=== PATIENT | male | born 1935 | race Caucasian/White ===

== ENCOUNTER 2017-12-12 10:12 | Outpatient (CLI) | payer MEDICARE, BC ==
[~2017-12-12] VITALS: Ht 170.2 cm; Wt 74.8 kg
[2017-12-12 11:57] LABS: BASOPHILS % (AUTO) 0.2 % (0-1); EOSINOPHILS # (AUTO) 0.1 X10'3 (0-0.9); EOSINOPHILS % (AUTO) 0.7 % (0-6); LYMPHOCYTES % (AUTO) 12.3 % (21-51); MEAN CORPUSCULAR HEMOGLOBIN 32.6 PG (27.0-31.0); MEAN CORPUSCULAR HGB CONC 33.4 % (33.0-36.5); MEAN CORPUSCULAR VOLUME 97.5 FL (78-98); MEAN PLATELET VOLUME 8.5 FL (7.4-10.4); MONOCYTES # (AUTO) 0.4 X10'3 (0-0.9); MONOCYTES % (AUTO) 5.6 % (2-12); NEUTROPHILS # (AUTO) 6.4 X10'3 (1.8-7.7); NEUTROPHILS % (AUTO) 81.2 % (42-75); PRE OP HEMATOCRIT 34.1 % (42.0-52.0); PRE OP HEMOGLOBIN 11.4 g/dL (14.0-17.9); PRE OP PLATELET COUNT 191 X10'3 (140-440); RED CELL DISTRIBUTION WIDTH 14.1 % (11.5-14.5)
[2017-12-12 12:07] LABS: PRE OP PROTIME 17.8 SECONDS (9.0-12.0)
[2017-12-12 12:10] LABS: PRE OP INR 1.8 INR
[2017-12-12 12:13] LABS: ALBUMIN 3.9 G/DL (3.4-5.0); ALBUMIN/GLOBULIN RATIO 1.1 (1.1-1.5); ALKALINE PHOSPHATASE 76 IU/L (46-116); BLOOD UREA NITROGEN 32 MG/DL (7-18); BUN/CREATININE RATIO 22.4 (5.4-32.0); CALCIUM 9.1 MG/DL (8.5-10.1); CHLORIDE 101 MMOL/L (99-107); CREATININE 1.43 MG/DL (0.60-1.10); PRE OP ALT 23 U/L (30-65); PRE OP ANION GAP 10 (8-16); PRE OP AST 17 U/L (10-37); PRE OP BILIRUB, TOTAL 0.5 MG/DL (0.0-1.0); PRE OP GLUCOSE 91 MG/DL (70-104); PRE OP POTASSIUM 4.4 MMOL/L (3.4-5.1); PRE OP SODIUM 137 MMOL/L (135-145); TOTAL CARBON DIOXIDE 26.5 MMOL/L (24-32); TOTAL PROTEIN 7.4 G/DL (6.4-8.2); eGFR 47 ML/MIN
[2017-12-12] MEDS ORDERED: CALC0.253 PO (12:58)
[2017-12-12] MEDS ORDERED: HYDR-565 PO (12:58)
[2017-12-12] MEDS ORDERED: DOCUSATE PO (12:58)
[2017-12-12] MEDS ORDERED: CHOL2000 PO (12:58)
[2017-12-12] MEDS ORDERED: DENO60DI SQ (12:58)
[2017-12-12] MEDS ORDERED: POLY17PO10 PO (12:58)
[2017-12-12] MEDS ORDERED: LORA1TAB PO (12:58)
[2017-12-12] MEDS ORDERED: ASPI-1265 PO (12:58)
[2017-12-12] MEDS ORDERED: OMEP40CA37 PO (12:58)
[2017-12-12] MEDS ORDERED: HYDR12.55 PO (12:58)
[2017-12-12] MEDS ORDERED: FISH12002 PO (12:58)
[2017-12-12] MEDS ORDERED: CALC1TAB PO (12:58)
[2017-12-12] MEDS ORDERED: FLO0.4C PO (12:58)
[2017-12-12] MEDS ORDERED: SENNA PO (12:58)
[2017-12-12] MEDS ORDERED: LOSA50TA3 PO (12:58)
[2017-12-12] MEDS ORDERED: SIMV20TA5 PO (12:58)
[2017-12-12] MEDS ORDERED: COU7.5T PO (12:58)
[2017-12-12] MEDS ORDERED: CHLO500T3 PO (12:58)
[2017-12-12] MEDS ORDERED: ALLO100T PO (12:58)
[2017-12-18] MEDS ORDERED: WARF1TAB PO (10:07)
[2017-12-19] MEDS ORDERED: ringers solution, lacted 1,000 ML IV SCH (05:00)
[2017-12-19] MEDS ORDERED: famotidine 20mg tablet PO ONE (05:30)
[2017-12-19] MEDS ORDERED: ceFAZolin 1GM/D5W- ADD-VANTAGE 50 ML IV ONE (05:30)
== END 2017-12-12 23:59 | disposition home or self-care (01) ==
LOC: PRE-OP 10:12 → EDSTATUS 12-19 07:30
PROVIDERS: ATTEND Urology
DX: Z01.812 Encounter for preprocedural laboratory examination (principal); N40.1 Benign prostatic hyperplasia with lower urinary tract symptoms
CPT/HCPCS: 36415; 71046; 80053; 85025; 85610; 85730; 86885; 86900; 86901; 87070

== ENCOUNTER 2018-01-02 05:30 | Inpatient (IN) | payer MEDICARE, BC ==
[~2018-01-02] VITALS: Ht 170.2 cm; Wt 75.2 kg
[2018-01-02] VITALS (24 sets, daily range): BP systolic 114–153; BP diastolic 59–82
[~2018-01-02 05:30] MED LIST: ALLO100T PO; ASPI-1265 PO; CALC0.253 PO; CHLO500T3 PO; CHOL2000 PO; DENO60DI SQ; DOCU-148 PO; ESCI10TA PO; FISH12002 PO; FLO0.4C PO; HYDR-565 PO; LORA1TAB PO; LOSA50TA3 PO; OMEP20TA23 PO; OMEP40CA37 PO; POLY17PO10 PO; SIMV20TA5 PO; TAMS0.4C32 PO; VARD20TA31 PO; WARF1TAB PO; ceFAZolin 1,000 MG/D5W 50ML IVPB Premixed bag IV ONE; famotidine 20mg tablet PO ONE; ringers solution, lacted 1,000 ML IV SCH
[2018-01-02] MEDS ORDERED: CALC-1051 PO (06:14)
[2018-01-02] MEDS ORDERED: LIDOcaine 1% (10mg/ml) 2ml vial ONE (06:29)
[2018-01-02] MEDS ORDERED: ringers solution, lacted 1,000 ML IV SCH (07:06)
[2018-01-02] MEDS ORDERED: hydrALAZINE 20mg/ml inj. IV PRN (07:10)
[2018-01-02] MEDS ORDERED: morphine 4 MG/ML inj SYRINge IV PRN ×2 (07:10)
[2018-01-02] MEDS ORDERED: fentaNYL/PF 50MCG/1 ML 2ML syringe IV PRN (07:10)
[2018-01-02] MEDS ORDERED: labetalol 20mg/4ml (5mg/ml) syringe IV PRN (07:10)
[2018-01-02] MEDS ORDERED: ondansetron/PF 4mg/2ml inj IV PRN ×2 (07:10→10:20)
[2018-01-02] MEDS ORDERED: fentaNYL/PF 50MCG/1 ML 2ML syringe ONE (07:12)
[2018-01-02] MEDS ORDERED: midazolam 2 mg/2 ml injection ONE (07:13)
[2018-01-02 07:20] LABS: BASOPHILS % (AUTO) 0.2 % (0-1); EOSINOPHILS % (AUTO) 0.3 % (0-6); LYMPHOCYTES # (AUTO) 1.1 X10'3 (1.1-4.8); LYMPHOCYTES % (AUTO) 12.5 % (21-51); MEAN CORPUSCULAR HGB CONC 33.9 % (33.0-36.5); MEAN CORPUSCULAR VOLUME 97.4 FL (78-98); MEAN PLATELET VOLUME 9.2 FL (7.4-10.4); MONOCYTES # (AUTO) 0.7 X10'3 (0-0.9); MONOCYTES % (AUTO) 8.3 % (2-12); NEUTROPHILS # (AUTO) 6.6 X10'3 (1.8-7.7); NEUTROPHILS % (AUTO) 78.7 % (42-75); PRE OP HEMOGLOBIN 11.5 g/dL (14.0-17.9); PRE OP PLATELET COUNT 200 X10'3 (140-440); RED BLOOD COUNT 3.49 X10'6 (4.70-6.10); RED CELL DISTRIBUTION WIDTH 13.4 % (11.5-14.5)
[2018-01-02] MEDS ORDERED: ondansetron/PF 4mg/2ml inj ONE (07:25)
[2018-01-02] MEDS ORDERED: neostigmine methylsulfate 1 MG/ML 10ml vial ONE (07:25)
[2018-01-02] MEDS ORDERED: sevoflurane 250ml liquid IH ONE (07:25)
[2018-01-02] MEDS ORDERED: dexamethasone sod phosphate 10mg/ml inj ONE (07:25)
[2018-01-02 07:34] LABS: ALBUMIN 3.7 G/DL (3.4-5.0); ALBUMIN/GLOBULIN RATIO 1.1 (1.1-1.5); ALKALINE PHOSPHATASE 81 IU/L (46-116); BLOOD UREA NITROGEN 36 MG/DL (7-18); BUN/CREATININE RATIO 24.8 (5.4-32.0); CALCIUM 8.4 MG/DL (8.5-10.1); CHLORIDE 103 MMOL/L (99-107); CREATININE 1.45 MG/DL (0.60-1.10); PRE OP ALT 21 U/L (30-65); PRE OP ANION GAP 8 (8-16); PRE OP AST 12 U/L (10-37); PRE OP BILIRUB, TOTAL 0.8 MG/DL (0.0-1.0); PRE OP GLUCOSE 103 MG/DL (70-104); PRE OP POTASSIUM 4.1 MMOL/L (3.4-5.1); PRE OP SODIUM 136 MMOL/L (135-145); TOTAL CARBON DIOXIDE 25.3 MMOL/L (24-32); eGFR 46 ML/MIN
[2018-01-02] MEDS ORDERED: albumin (Human) 5% 250ml 250 ML IV ONE ×2 (07:49→08:35)
[2018-01-02 08:14] LABS: PRE OP PROTIME 10.7 SECONDS (9.0-12.0)
[2018-01-02] MEDS ORDERED: rocuronium 10mg/ml inj IV ONE (08:18)
[2018-01-02] MEDS ORDERED: propofol inj 20 ML IV ONE (08:19)
[2018-01-02] MEDS ORDERED: LIDOcaine 1%/PF 5ML 10 MG/ML VIAL ONE (08:19)
[2018-01-02] MEDS ORDERED: albumin (Human) 5% 250ml 500 ML IV ONE (08:40)
[2018-01-02 09:21] LABS: ISTAT CREATININE 1.1 mg/dL (0.8-1.3); ISTAT HGB 6.8 g/dl (14.0-18.0); ISTAT IONIZED CALCIUM 1.15 mmol/L (1.03-1.32); ISTAT K 3.7 mmol/L (3.5-5.1); POC BUN/CREATININE RATIO 25.5 (5.4-32.0)
[2018-01-02 09:35] LABS: BASOPHILS % (AUTO) 0.4 % (0-1); EOSINOPHILS % (AUTO) 0.6 % (0-6); LYMPHOCYTES # (AUTO) 0.8 X10'3 (1.1-4.8); LYMPHOCYTES % (AUTO) 14.9 % (21-51); MEAN CORPUSCULAR HEMOGLOBIN 33.6 PG (27.0-31.0); MEAN CORPUSCULAR HGB CONC 34.8 % (33.0-36.5); MEAN CORPUSCULAR VOLUME 96.5 FL (78-98); MEAN PLATELET VOLUME 8.8 FL (7.4-10.4); MONOCYTES # (AUTO) 0.4 X10'3 (0-0.9); NEUTROPHILS # (AUTO) 4.2 X10'3 (1.8-7.7); NEUTROPHILS % (AUTO) 77.1 % (42-75); PLATELET COUNT 136 X10'3 (140-440); RED BLOOD COUNT 2.39 X10'6 (4.70-6.10); RED CELL DISTRIBUTION WIDTH 13.1 % (11.5-14.5); WHITE BLOOD COUNT 5.4 X10'3 (4.5-11.0)
[2018-01-02] MEDS ORDERED: glycopyrrolate 0.2mg/ml inj ONE (09:40)
[2018-01-02] MEDS ORDERED: morphine 10mg/ml inj. ONE (09:43)
[2018-01-02] MEDS ORDERED: naloxone 0.4 mg/ml inj IV PRN (10:20)
[2018-01-02] MEDS ORDERED: CADD PCA waste documentation MC PRN (10:20)
[2018-01-02] MEDS: fentaNYL/PF 50MCG/1 ML 2ML syringe IV PRN ×2 (10:30→10:36)
[2018-01-02] MEDS: HYDROmorphone/NS 1 mg/ml CADD 50 ML IV SCH ×7 (10:39→23:00)
[2018-01-02] MEDS ORDERED: cyclobenzaprine 10mg tablet PO PRN (10:45)
[2018-01-02] MEDS: LORazepam 1 MG tablet PO PRN ×2 (12:57→21:20)
[2018-01-02] MEDS: potassium cl 20mEq in 1/2 NS 1,000 ML IV SCH ×3 (13:59→21:22)
[2018-01-02] MEDS: ceFAZolin/D5W- 1GM premix 50 ML IV SCH ×2 (16:35→23:23)
[2018-01-02 18:22] LABS: BASOPHILS % (AUTO) 0.1 % (0-1); EOSINOPHILS % (AUTO) 0 % (0-6); HEMATOCRIT 33.5 % (42.0-52.0); HEMOGLOBIN 11.4 g/dl (14.0-17.9); LYMPHOCYTES # (AUTO) 0.4 X10'3 (1.1-4.8); LYMPHOCYTES % (AUTO) 3.8 % (21-51); MEAN CORPUSCULAR HEMOGLOBIN 32.8 PG (27.0-31.0); MEAN CORPUSCULAR HGB CONC 33.9 % (33.0-36.5); MEAN CORPUSCULAR VOLUME 96.7 FL (78-98); MEAN PLATELET VOLUME 8.7 FL (7.4-10.4); MONOCYTES # (AUTO) 0.2 X10'3 (0-0.9); MONOCYTES % (AUTO) 1.4 % (2-12); NEUTROPHILS # (AUTO) 10.6 X10'3 (1.8-7.7); NEUTROPHILS % (AUTO) 94.7 % (42-75); PLATELET COUNT 165 X10'3 (140-440); RED BLOOD COUNT 3.47 X10'6 (4.70-6.10); RED CELL DISTRIBUTION WIDTH 13.7 % (11.5-14.5); WHITE BLOOD COUNT 11.2 X10'3 (4.5-11.0)
[2018-01-02] MEDS: allopurinol 100mg tablet PO SCH (19:47)
[2018-01-02] MEDS: losartan 50mg tablet PO SCH (21:19)
[2018-01-03] VITALS: BP 133/70
[2018-01-03] MEDS: HYDROmorphone/NS 1 mg/ml CADD 50 ML IV SCH ×12 (01:00→23:00)
[2018-01-03] MEDS: potassium cl 20mEq in 1/2 NS 1,000 ML IV SCH ×3 (04:10→23:14)
[2018-01-03 05:06] LABS: BASOPHILS % (AUTO) 0 % (0-1); EOSINOPHILS % (AUTO) 0.1 % (0-6); HEMATOCRIT 30.1 % (42.0-52.0); HEMOGLOBIN 10.3 g/dl (14.0-17.9); LYMPHOCYTES # (AUTO) 0.7 X10'3 (1.1-4.8); LYMPHOCYTES % (AUTO) 6.2 % (21-51); MEAN CORPUSCULAR HEMOGLOBIN 32.9 PG (27.0-31.0); MEAN CORPUSCULAR HGB CONC 34.2 % (33.0-36.5); MEAN CORPUSCULAR VOLUME 96.3 FL (78-98); MEAN PLATELET VOLUME 9.1 FL (7.4-10.4); MONOCYTES # (AUTO) 0.8 X10'3 (0-0.9); MONOCYTES % (AUTO) 6.6 % (2-12); NEUTROPHILS # (AUTO) 10.1 X10'3 (1.8-7.7); NEUTROPHILS % (AUTO) 87.1 % (42-75); PLATELET COUNT 148 X10'3 (140-440); RED BLOOD COUNT 3.12 X10'6 (4.70-6.10); RED CELL DISTRIBUTION WIDTH 13.4 % (11.5-14.5); WHITE BLOOD COUNT 11.6 X10'3 (4.5-11.0)
[2018-01-03 05:30] LABS: ANION GAP 8 (8-16); BLOOD UREA NITROGEN 27 MG/DL (7-18); BUN/CREATININE RATIO 20.6 (5.4-32.0); CALCIUM 7.4 MG/DL (8.5-10.1); CHLORIDE 105 MMOL/L (99-107); CREATININE 1.31 MG/DL (0.60-1.10); GLUCOSE 119 MG/DL (70-104); POTASSIUM 4.7 MMOL/L (3.5-5.1); SODIUM 135 MMOL/L (135-145); TOTAL CARBON DIOXIDE 22.1 MMOL/L (24-32); eGFR 52 ML/MIN
[2018-01-03 07:01] VITALS: BP 153/74
[2018-01-03] MEDS: polyethylene glycol 3350 17gm powd pack PO SCH (07:32)
[2018-01-03] MEDS: allopurinol 100mg tablet PO SCH ×2 (07:34→20:16)
[2018-01-03] MEDS: ceFAZolin/D5W- 1GM premix 50 ML IV SCH (07:34)
[2018-01-03] MEDS: pantoprazole 40mg Tablet.DR PO SCH (07:34)
[2018-01-03 12:02] VITALS: BP 150/69
[2018-01-03] MEDS: oxybutynin 5mg tablet PO PRN ×2 (16:48→23:20)
[2018-01-03 19:00] VITALS: BP 167/80
[2018-01-03] MEDS: losartan 50mg tablet PO SCH (20:16)
[2018-01-03] MEDS: LORazepam 1 MG tablet PO PRN (20:39)
[2018-01-04] VITALS: BP 132/61
[2018-01-04] MEDS: HYDROmorphone/NS 1 mg/ml CADD 50 ML IV SCH ×12 (01:00→23:00)
[2018-01-04 05:09] LABS: ALBUMIN 2.9 G/DL (3.4-5.0); ANION GAP 6 (8-16); BASOPHILS % (AUTO) 0.1 % (0-1); BLOOD UREA NITROGEN 23 MG/DL (7-18); BUN/CREATININE RATIO 18.1 (5.4-32.0); CALCIUM 7.5 MG/DL (8.5-10.1); CHLORIDE 107 MMOL/L (99-107); CREATININE 1.27 MG/DL (0.60-1.10); EOSINOPHILS # (AUTO) 0.1 X10'3 (0-0.9); EOSINOPHILS % (AUTO) 0.7 % (0-6); GLUCOSE 87 MG/DL (70-104); HEMATOCRIT 28.7 % (42.0-52.0); HEMOGLOBIN 9.9 g/dl (14.0-17.9); LYMPHOCYTES # (AUTO) 1.6 X10'3 (1.1-4.8); LYMPHOCYTES % (AUTO) 13.1 % (21-51); MEAN CORPUSCULAR HEMOGLOBIN 32.9 PG (27.0-31.0); MEAN CORPUSCULAR HGB CONC 34.4 % (33.0-36.5); MEAN CORPUSCULAR VOLUME 95.4 FL (78-98); MEAN PLATELET VOLUME 8.8 FL (7.4-10.4); MONOCYTES # (AUTO) 0.9 X10'3 (0-0.9); MONOCYTES % (AUTO) 7.4 % (2-12); NEUTROPHILS # (AUTO) 9.3 X10'3 (1.8-7.7); NEUTROPHILS % (AUTO) 78.7 % (42-75); PLATELET COUNT 152 X10'3 (140-440); POTASSIUM 4.8 MMOL/L (3.5-5.1); RED BLOOD COUNT 3.01 X10'6 (4.70-6.10); RED CELL DISTRIBUTION WIDTH 13.9 % (11.5-14.5); SODIUM 137 MMOL/L (135-145); TOTAL CARBON DIOXIDE 24.1 MMOL/L (24-32); WHITE BLOOD COUNT 11.9 X10'3 (4.5-11.0); eGFR 54 ML/MIN
[2018-01-04] MEDS: polyethylene glycol 3350 17gm powd pack PO SCH (07:32)
[2018-01-04] MEDS: allopurinol 100mg tablet PO SCH ×2 (07:32→20:51)
[2018-01-04] MEDS: pantoprazole 40mg Tablet.DR PO SCH (07:32)
[2018-01-04] MEDS: docusate sod 250mg capsule PO SCH (07:32)
[2018-01-04] MEDS: oxybutynin 5mg tablet PO PRN (08:21)
[2018-01-04 08:34] VITALS: BP 156/78
[2018-01-04 11:37] VITALS: BP 138/75
[2018-01-04] MEDS: potassium cl 20mEq in 1/2 NS 1,000 ML IV SCH (13:54)
[2018-01-04] MEDS: opium/belladonna alkaloids No. 15A 30mg rectal suppository RC PRN (14:30)
[2018-01-04 18:30] VITALS: BP 158/76
[2018-01-04] MEDS: LORazepam 1 MG tablet PO PRN (20:53)
[2018-01-04] MEDS: losartan 50mg tablet PO SCH (20:57)
[2018-01-04 23:00] VITALS: BP 145/70
[2018-01-05] MEDS: HYDROmorphone/NS 1 mg/ml CADD 50 ML IV SCH ×4 (01:00→07:00)
[2018-01-05] MEDS: potassium cl 20mEq in 1/2 NS 1,000 ML IV SCH (04:44)
[2018-01-05 05:44] LABS: BASOPHILS % (AUTO) 0.3 % (0-1); EOSINOPHILS # (AUTO) 0.1 X10'3 (0-0.9); EOSINOPHILS % (AUTO) 1.3 % (0-6); HEMATOCRIT 30.6 % (42.0-52.0); HEMOGLOBIN 10.6 g/dl (14.0-17.9); LYMPHOCYTES # (AUTO) 1.5 X10'3 (1.1-4.8); LYMPHOCYTES % (AUTO) 16.5 % (21-51); MEAN CORPUSCULAR HEMOGLOBIN 33.2 PG (27.0-31.0); MEAN CORPUSCULAR HGB CONC 34.6 % (33.0-36.5); MEAN PLATELET VOLUME 8.9 FL (7.4-10.4); MONOCYTES # (AUTO) 0.9 X10'3 (0-0.9); NEUTROPHILS # (AUTO) 6.8 X10'3 (1.8-7.7); NEUTROPHILS % (AUTO) 71.9 % (42-75); PLATELET COUNT 155 X10'3 (140-440); RED BLOOD COUNT 3.19 X10'6 (4.70-6.10); RED CELL DISTRIBUTION WIDTH 13.7 % (11.5-14.5); WHITE BLOOD COUNT 9.3 X10'3 (4.5-11.0)
[2018-01-05 06:07] LABS: ALBUMIN 3.1 G/DL (3.4-5.0); ANION GAP 8 (8-16); BLOOD UREA NITROGEN 18 MG/DL (7-18); BUN/CREATININE RATIO 14.8 (5.4-32.0); CALCIUM 7.5 MG/DL (8.5-10.1); CHLORIDE 107 MMOL/L (99-107); CREATININE 1.22 MG/DL (0.60-1.10); GLUCOSE 89 MG/DL (70-104); POTASSIUM 4.2 MMOL/L (3.5-5.1); SODIUM 139 MMOL/L (135-145); TOTAL CARBON DIOXIDE 23.6 MMOL/L (24-32); eGFR 57 ML/MIN
[2018-01-05 06:58] VITALS: BP 129/79
[2018-01-05] MEDS: docusate sod 250mg capsule PO SCH (07:57)
[2018-01-05] MEDS: polyethylene glycol 3350 17gm powd pack PO SCH (07:57)
[2018-01-05] MEDS: pantoprazole 40mg Tablet.DR PO SCH (07:57)
[2018-01-05] MEDS: allopurinol 100mg tablet PO SCH ×2 (07:58→09:00)
[2018-01-05] MEDS ORDERED: HYDROcodone/acetaminophen 5mg/325mg tablet PO PRN (09:20)
[2018-01-05 12:21] VITALS: BP 117/69
[2018-01-05] MEDS: HYDROcodone/acetaminophen 5mg/325mg tablet PO PRN (15:23)
[2018-01-05] MEDS: opium/belladonna alkaloids No. 15A 30mg rectal suppository RC PRN (15:26)
[2018-01-05 20:00] VITALS: BP 132/71
[2018-01-05] MEDS: oxybutynin 5mg tablet PO PRN (21:24)
[2018-01-05] MEDS: losartan 50mg tablet PO SCH (21:24)
[2018-01-06] VITALS: BP 139/67
[2018-01-06] MEDS: opium/belladonna alkaloids No. 15A 30mg rectal suppository RC PRN ×2 (02:18→14:55)
[2018-01-06] MEDS: HYDROcodone/acetaminophen 5mg/325mg tablet PO PRN ×3 (02:21→20:52)
[2018-01-06] MEDS: LORazepam 1 MG tablet PO PRN (02:50)
[2018-01-06 04:59] LABS: BASOPHILS % (AUTO) 0.3 % (0-1); EOSINOPHILS # (AUTO) 0.2 X10'3 (0-0.9); EOSINOPHILS % (AUTO) 2.2 % (0-6); HEMATOCRIT 27.1 % (42.0-52.0); HEMOGLOBIN 9.4 g/dl (14.0-17.9); LYMPHOCYTES # (AUTO) 1.1 X10'3 (1.1-4.8); LYMPHOCYTES % (AUTO) 11.9 % (21-51); MEAN CORPUSCULAR HEMOGLOBIN 33.1 PG (27.0-31.0); MEAN CORPUSCULAR HGB CONC 34.6 % (33.0-36.5); MEAN CORPUSCULAR VOLUME 95.5 FL (78-98); MEAN PLATELET VOLUME 8.8 FL (7.4-10.4); MONOCYTES # (AUTO) 0.9 X10'3 (0-0.9); MONOCYTES % (AUTO) 9.8 % (2-12); NEUTROPHILS # (AUTO) 7.2 X10'3 (1.8-7.7); NEUTROPHILS % (AUTO) 75.8 % (42-75); PLATELET COUNT 158 X10'3 (140-440); RED BLOOD COUNT 2.84 X10'6 (4.70-6.10); RED CELL DISTRIBUTION WIDTH 14.5 % (11.5-14.5); WHITE BLOOD COUNT 9.6 X10'3 (4.5-11.0)
[2018-01-06 05:14] LABS: ALBUMIN 2.9 G/DL (3.4-5.0); ANION GAP 8 (8-16); BLOOD UREA NITROGEN 23 MG/DL (7-18); BUN/CREATININE RATIO 16.4 (5.4-32.0); CALCIUM 7.4 MG/DL (8.5-10.1); CHLORIDE 106 MMOL/L (99-107); GLUCOSE 103 MG/DL (70-104); SODIUM 135 MMOL/L (135-145); TOTAL CARBON DIOXIDE 21.3 MMOL/L (24-32); eGFR 48 ML/MIN
[2018-01-06 07:00] VITALS: BP_SYST 144; BP_DIAS 75; BP_DIAS 78
[2018-01-06] MEDS: allopurinol 100mg tablet PO SCH ×2 (07:50→20:47)
[2018-01-06] MEDS: docusate sod 250mg capsule PO SCH (07:50)
[2018-01-06] MEDS: pantoprazole 40mg Tablet.DR PO SCH (07:51)
[2018-01-06] MEDS: polyethylene glycol 3350 17gm powd pack PO SCH (07:52)
[2018-01-06 11:21] VITALS: BP 107/62
[2018-01-06] MEDS: oxybutynin 5mg tablet PO PRN ×2 (14:39→20:48)
[2018-01-06 20:00] VITALS: BP 128/67
[2018-01-06] MEDS: losartan 50mg tablet PO SCH (20:47)
[2018-01-07] VITALS: BP 145/70
[2018-01-07 05:18] LABS: BASOPHILS % (AUTO) 0.4 % (0-1); EOSINOPHILS # (AUTO) 0.3 X10'3 (0-0.9); EOSINOPHILS % (AUTO) 3.1 % (0-6); HEMATOCRIT 27.6 % (42.0-52.0); HEMOGLOBIN 9.2 g/dl (14.0-17.9); LYMPHOCYTES # (AUTO) 1.8 X10'3 (1.1-4.8); MEAN CORPUSCULAR HEMOGLOBIN 32.2 PG (27.0-31.0); MEAN CORPUSCULAR HGB CONC 33.3 % (33.0-36.5); MEAN PLATELET VOLUME 8.3 FL (7.4-10.4); MONOCYTES # (AUTO) 0.7 X10'3 (0-0.9); MONOCYTES % (AUTO) 8.3 % (2-12); NEUTROPHILS # (AUTO) 5.5 X10'3 (1.8-7.7); NEUTROPHILS % (AUTO) 66.2 % (42-75); PLATELET COUNT 176 X10'3 (140-440); RED BLOOD COUNT 2.85 X10'6 (4.70-6.10); RED CELL DISTRIBUTION WIDTH 14.5 % (11.5-14.5); WHITE BLOOD COUNT 8.3 X10'3 (4.5-11.0)
[2018-01-07 05:23] LABS: ANION GAP 9 (8-16); BLOOD UREA NITROGEN 30 MG/DL (7-18); BUN/CREATININE RATIO 19.2 (5.4-32.0); CALCIUM 7.4 MG/DL (8.5-10.1); CHLORIDE 104 MMOL/L (99-107); CREATININE 1.56 MG/DL (0.60-1.10); GLUCOSE 85 MG/DL (70-104); POTASSIUM 4.4 MMOL/L (3.5-5.1); SODIUM 136 MMOL/L (135-145); TOTAL CARBON DIOXIDE 23.2 MMOL/L (24-32); eGFR 43 ML/MIN
[2018-01-07 07:00] VITALS: BP 140/69
[2018-01-07] MEDS: docusate sod 250mg capsule PO SCH (07:53)
[2018-01-07] MEDS: allopurinol 100mg tablet PO SCH (07:53)
[2018-01-07] MEDS: pantoprazole 40mg Tablet.DR PO SCH (07:53)
[2018-01-07] MEDS: polyethylene glycol 3350 17gm powd pack PO SCH (07:53)
[2018-01-07] MEDS: HYDROcodone/acetaminophen 5mg/325mg tablet PO PRN (07:57)
[2018-01-07] MEDS ORDERED: OXYB5TAB11 PO (08:34)
== END 2018-01-07 11:00 | disposition home or self-care (01) | DRG 715 ==
LOC: PAS IN 05:30 → EDSTATUS 07:30 → SUR 3N 11:41
PROVIDERS: ADMIT Urology; ATTEND Urology
PROC: 30233N1 Transfusion of Nonautologous Red Blood Cells into Peripheral Vein, Percutaneous Approach (ICD-10-PCS; 2018-01-02)
PROC: 0T9B80Z Drainage of Bladder with Drainage Device, Via Natural or Artificial Opening Endoscopic (ICD-10-PCS; 2018-01-02)
PROC: 0VB00ZZ Excision of Prostate, Open Approach (ICD-10-PCS; principal; 2018-01-02 07:30)
DX: C61 Malignant neoplasm of prostate (principal); D62 Acute posthemorrhagic anemia; N32.0 Bladder-neck obstruction; N39.41 Urge incontinence; R31.9 Hematuria, unspecified; I10 Essential (primary) hypertension; I48.91 Unspecified atrial fibrillation; F41.9 Anxiety disorder, unspecified; M10.9 Gout, unspecified; K21.9 Gastro-esophageal reflux disease without esophagitis; K59.00 Constipation, unspecified; I25.10 Atherosclerotic heart disease of native coronary artery without angina pectoris; Z90.5 Acquired absence of kidney; Z72.89 Other problems related to lifestyle; Z79.01 Long term (current) use of anticoagulants; Z79.899 Other long term (current) drug therapy; Z79.82 Long term (current) use of aspirin; Z87.01 Personal history of pneumonia (recurrent); Z87.891 Personal history of nicotine dependence; Z80.3 Family history of malignant neoplasm of breast; Z85.828 Personal history of other malignant neoplasm of skin; Z85.528 Personal history of other malignant neoplasm of kidney
CPT/HCPCS: 36415; 80047; 80048; 80053; 85025; 85610; 85730; 86885; 86900; 86901; 86920; 87070; 88307; 88344; 93005; A4344; A4346; A4357; A6402; A6449; A7000; C1758; C1769; J0690; J1100; J1170; J2001; J2250; J2270; J2405; J2704; J2710; J3010; J3490; J7030; J7120; P9016; P9045

== ENCOUNTER 2020-09-24 08:47 | Emergency (ER) | payer MEDICARE, BC ==
[~2020-09-24] VITALS: Ht 167.6 cm; Wt 75.0 kg
[~2020-09-24 08:47] MED LIST changes: -ASPI-1265 PO; +CALC-1051 PO; -ESCI10TA PO; -FLO0.4C PO; +HYDR-4353 PO; -HYDR-565 PO; -OMEP40CA37 PO; +OXYB5TAB16 PO; +SIMV-42 PO; -SIMV20TA5 PO; -WARF1TAB PO; -ceFAZolin 1,000 MG/D5W 50ML IVPB Premixed bag IV ONE; -famotidine 20mg tablet PO ONE; -ringers solution, lacted 1,000 ML IV SCH
[2020-09-24] MEDS ORDERED: bacitracin 15gm ointment TP ONE (09:35)
[2020-09-24] MEDS ORDERED: CefTRIAXone 2gm/D5W 50ml BAG 50 ML IV ONE (09:35)
[2020-09-24] MEDS ORDERED: vancomycin/NS 1 GM ADD-VANTAGE 250 ML IV ONE (09:35)
--- NOTE | 2020-09-24 09:46 | NUR ---
NOTIFIED DR. Garcia THAT WOUND WAS VERY DRY TO CULTURE EVEN AFTER SQUEEZING IT.
[2020-09-24 10:10] LABS: BASOPHILS % (AUTO) 0.3 % (0-1); EOSINOPHILS % (AUTO) 0.3 % (0-6); HEMATOCRIT 29.7 % (42.0-52.0); HEMOGLOBIN 10.1 g/dl (14.0-17.9); LYMPHOCYTES # (AUTO) 0.9 X10'3 (1.1-4.8); LYMPHOCYTES % (AUTO) 14.3 % (21-51); MEAN CORPUSCULAR HEMOGLOBIN 33.9 PG (27.0-31.0); MEAN CORPUSCULAR HGB CONC 33.9 g/dL (33.0-36.5); MEAN CORPUSCULAR VOLUME 100.2 FL (78-98); MEAN PLATELET VOLUME 8.3 FL (7.4-10.4); MONOCYTES # (AUTO) 0.6 X10'3 (0-0.9); MONOCYTES % (AUTO) 8.9 % (2-12); NEUTROPHILS % (AUTO) 76.2 % (42-75); PLATELET COUNT 206 X10'3 (140-440); RED BLOOD COUNT 2.97 X10'6 (4.70-6.10); RED CELL DISTRIBUTION WIDTH 14.5 % (11.5-14.5); WHITE BLOOD COUNT 6.6 X10'3 (4.5-11.0)
--- NOTE | 2020-09-24 10:16 | NUR ---
PT TOOK NORCO AT HOME AT 7:30AM.
[2020-09-24 10:21] LABS: ALANINE AMINOTRANSFERASE 16 U/L (12-78); ALBUMIN 3.3 G/DL (3.4-5.0); ALBUMIN/GLOBULIN RATIO 0.9 (1.1-1.5); ALKALINE PHOSPHATASE 96 IU/L (46-116); ANION GAP 12 (8-16); ASPARTATE AMINO TRANSFERASE 20 U/L (10-37); BILIRUBIN,TOTAL 0.3 MG/DL (0.1-1.0); BLOOD UREA NITROGEN 37 MG/DL (7-18); BUN/CREATININE RATIO 21.8 (5.4-32.0); CALCIUM 8.4 MG/DL (8.5-10.1); CHLORIDE 105 MMOL/L (99-107); GLUCOSE 139 MG/DL (70-104); MAGNESIUM 1.7 MG/DL (1.5-2.4); POTASSIUM 3.6 MMOL/L (3.5-5.1); SODIUM 141 MMOL/L (135-145); TOTAL CARBON DIOXIDE 24.4 MMOL/L (24-32); TOTAL PROTEIN 7.1 G/DL (6.4-8.2); eGFR 38 ML/MIN
[2020-09-24 12:31] VITALS: BP 156/92
== END 2020-09-24 12:33 | disposition home or self-care (01) ==
LOC: ER 08:48
DX: T81.49XA Infection following a procedure, other surgical site, initial encounter (principal); L08.9 Local infection of the skin and subcutaneous tissue, unspecified; L03.116 Cellulitis of left lower limb; Z98.890 Other specified postprocedural states; Z79.899 Other long term (current) drug therapy
CPT/HCPCS: 36415; 73660; 80053; 83605; 83735; 84145; 85025; 87040; 87070; 96365; 96366; 96367; 99285; J0696; J3370

== ENCOUNTER 2020-11-17 08:18 | Day surgery (SDC) | payer MEDICARE, BC ==
[2020-11-10 10:51] LABS: BASOPHILS % (AUTO) 0.7 % (0-1); EOSINOPHILS # (AUTO) 0.1 X10'3 (0-0.9); EOSINOPHILS % (AUTO) 1.9 % (0-6); LYMPHOCYTES # (AUTO) 1.3 X10'3 (1.1-4.8); LYMPHOCYTES % (AUTO) 19.9 % (21-51); MEAN CORPUSCULAR HEMOGLOBIN 33.2 PG (27.0-31.0); MEAN CORPUSCULAR HGB CONC 33.8 g/dL (33.0-36.5); MEAN CORPUSCULAR VOLUME 98.3 FL (78-98); MEAN PLATELET VOLUME 8.4 FL (7.4-10.4); MONOCYTES # (AUTO) 0.7 X10'3 (0-0.9); MONOCYTES % (AUTO) 9.8 % (2-12); NEUTROPHILS # (AUTO) 4.6 X10'3 (1.8-7.7); NEUTROPHILS % (AUTO) 67.7 % (42-75); PRE OP HEMATOCRIT 31.6 % (42.0-52.0); PRE OP PLATELET COUNT 193 X10'3 (140-440); RED BLOOD COUNT 3.22 X10'6 (4.70-6.10); RED CELL DISTRIBUTION WIDTH 13.9 % (11.5-14.5)
[2020-11-10 10:54] LABS: PRE OP HEMOGLOBIN 10.7 g/dL (14.0-17.9)
[2020-11-10 11:07] LABS: ALBUMIN 3.7 G/DL (3.4-5.0); ALBUMIN/GLOBULIN RATIO 1.1 (1.1-1.5); ALKALINE PHOSPHATASE 83 IU/L (46-116); BLOOD UREA NITROGEN 39 MG/DL (7-18); BUN/CREATININE RATIO 23.4 (5.4-32.0); CALCIUM 9.3 MG/DL (8.5-10.1); CHLORIDE 106 MMOL/L (99-107); CREATININE 1.67 MG/DL (0.60-1.10); PRE OP ALT 21 U/L (30-65); PRE OP ANION GAP 8 (8-16); PRE OP AST 28 U/L (10-37); PRE OP BILIRUB, TOTAL 0.5 MG/DL (0.0-1.0); PRE OP GLUCOSE 87 MG/DL (70-104); PRE OP POTASSIUM 4.6 MMOL/L (3.4-5.1); PRE OP SODIUM 141 MMOL/L (135-145); TOTAL CARBON DIOXIDE 27.4 MMOL/L (24-32); TOTAL PROTEIN 7.1 G/DL (6.4-8.2); eGFR 39 ML/MIN
[2020-11-10 11:16] LABS: C-REACTIVE PROTEIN 0.07 MG/DL (0.0-0.5)
[~2020-11-17] VITALS: Ht 167.6 cm; Wt 74.8 kg
[~2020-11-17 08:18] MED LIST changes: +BIOT5TAB PO; -CALC-1051 PO; +CALC1TAB99 PEG; +CARV3.122 PO; +DOCUMENT DATE & TIME OF BETA-BLOCKER PO ONE; -FISH12002 PO; +FURO-150 PO; +GABA-530 PO; +MELA5TAB12 PO; +OMEG-79 PO; -OXYB5TAB16 PO; -TAMS0.4C32 PO; +VITA-3 PO; +WARF6TAB49 PO; +cefazolin/dext.iso 2gm/100ml IV ONE; +famotidine 20mg tablet PO ONE; +ringers solution, lacted 1,000 ML IV SCH
[2020-11-17 08:30] VITALS: BP 139/69
[2020-11-17 09:35] LABS: PRE OP INR 1.1 INR; PRE OP PROTIME 11.2 SECONDS (9.0-12.0)
[2020-11-17] MEDS ORDERED: BUPIVAcaine/PF 2.5 mg/ml (0.25%) 30ml vial ONE (10:55)
[2020-11-17] MEDS ORDERED: bacitracin 15gm ointment TP ONE (10:55)
[2020-11-17] MEDS ORDERED: sevoflurane 250ml liquid IH ONE (11:02)
[2020-11-17] MEDS ORDERED: fentaNYL/PF 50MCG/1 ML 2ML syringe ONE (11:06)
[2020-11-17] MEDS ORDERED: midazolam 1 mg/ML 2ml injection ONE (11:07)
[2020-11-17] MEDS ORDERED: propofol inj 20 ML IV ONE (11:20)
[2020-11-17] MEDS ORDERED: dexamethasone sod phosphate 4mg/ml inj. ONE (11:20)
[2020-11-17] MEDS ORDERED: LIDOcaine 2% (20mg/ml) 5ml vial ONE (11:20)
[2020-11-17] MEDS ORDERED: ondansetron/PF 4mg/2ml inj ONE (11:20)
[2020-11-17] MEDS ORDERED: ePHEDrine 50MG/ML INJ. ONE (11:32)
[2020-11-17 11:49] VITALS: BP 146/66
--- NOTE | 2020-11-17 11:49 | NUR ---
Received from OR via [facility] , accompanied by Anesthesiologist CASSIDY and report given by Anesthesiolgist. PATIENT WITH 20G PIOV IN LEFT UE RUNNING 100 OF LR. VSS. ENIES PAIN COBAN DRESSING IS CDI TO LEFT FOOT. NO DRAINAGE PRESENT. + CAP REFILL IN REMAINING TOES. Addendum: 11/17/20 at 1203 by Bharath Hamilton RN, RN Amended: Links added.
[2020-11-17 12:00] VITALS: BP 136/64
[2020-11-17] MEDS ORDERED: proCHLORperazine 10 MG/2 ml inj IV PRN (12:05)
[2020-11-17] MEDS ORDERED: morphine 2 MG/ML inj. syringe IV PRN (12:05)
[2020-11-17] MEDS ORDERED: hydrALAZINE 20mg/ml inj. IV PRN (12:05)
[2020-11-17] MEDS ORDERED: meperidine/PF 25mg/ml syringe IV PRN ×3 (12:05)
[2020-11-17] MEDS ORDERED: labetalol 20mg/4ml (5mg/ml) syringe IV PRN (12:05)
[2020-11-17] MEDS ORDERED: ondansetron/PF 4mg/2ml inj IV PRN (12:05)
[2020-11-17] MEDS ORDERED: morphine 4 MG/ML inj SYRINge IV PRN (12:05)
[2020-11-17] MEDS ORDERED: ringers solution, lacted 1,000 ML IV SCH (12:05)
[2020-11-17] MEDS ORDERED: acetaminophen 1,000mg/100ml IV 100 ML IV PRN (12:05)
[2020-11-17 12:10] VITALS: BP 134/60
[2020-11-17 12:20] VITALS: BP 159/75
[2020-11-17 12:30] VITALS: BP 162/70
--- NOTE | 2020-11-17 12:59 | NUR ---
ALL DC CRITERIA FOR HOME HAS BEEN MET. COMING TO TAKE PATIENT HOME. IV OUT WITHOUT COMPLICATIONS. ALL QUESTIONS ANSWERED FOR DC PAPERWORK AND PATIENT SHOWED GOOD UNDERSTANDING OF CONTENT. OUT VIA WHEELCHAIR TO PERSONAL VEHICLE WHERE FAMILY DROVE PATIENT HOME. Addendum: 11/17/20 at 1317 by Bharath Hamilton RN, RN Amended: Links added.
== END 2020-11-17 12:59 | disposition home or self-care (01) ==
LOC: PAS 08:18
PROVIDERS: ATTEND Podiatrist Foot & Ankle Surgery
DX: M86.8X7 Other osteomyelitis, ankle and foot (principal); M24.575 Contracture, left foot; L97.529 Non-pressure chronic ulcer of other part of left foot with unspecified severity; I25.10 Atherosclerotic heart disease of native coronary artery without angina pectoris; I48.91 Unspecified atrial fibrillation; D64.9 Anemia, unspecified; I12.9 Hypertensive chronic kidney disease with stage 1 through stage 4 chronic kidney disease, or unspecified chronic kidney disease; N18.9 Chronic kidney disease, unspecified; K21.9 Gastro-esophageal reflux disease without esophagitis; F41.9 Anxiety disorder, unspecified; M19.90 Unspecified osteoarthritis, unspecified site; Z87.891 Personal history of nicotine dependence; Z95.1 Presence of aortocoronary bypass graft; Z79.01 Long term (current) use of anticoagulants; Z90.5 Acquired absence of kidney; Z90.89 Acquired absence of other organs; Z98.890 Other specified postprocedural states; Z90.79 Acquired absence of other genital organ(s); Z85.528 Personal history of other malignant neoplasm of kidney
CPT/HCPCS: 28270; 28825; 36415; 80053; 82948; 85025; 85610; 85651; 85730; 86140; A6222; J1100; J2001; J2250; J2405; J2704; J3010; J3490; A4215; A4618; A6449; A7000; J7120

== ENCOUNTER 2021-01-12 08:38 | Day surgery (SDC) | payer MEDICARE, BC ==
[2021-01-04 11:23] LABS: BASOPHILS % (AUTO) 0.4 % (0-1); EOSINOPHILS # (AUTO) 0.1 X10'3 (0-0.9); EOSINOPHILS % (AUTO) 0.8 % (0-6); LYMPHOCYTES % (AUTO) 15.9 % (21-51); MEAN CORPUSCULAR HEMOGLOBIN 33.2 PG (27.0-31.0); MEAN CORPUSCULAR HGB CONC 33.9 g/dL (33.0-36.5); MEAN CORPUSCULAR VOLUME 97.8 FL (78-98); MEAN PLATELET VOLUME 8.8 FL (7.4-10.4); MONOCYTES # (AUTO) 0.6 X10'3 (0-0.9); MONOCYTES % (AUTO) 9.7 % (2-12); NEUTROPHILS # (AUTO) 4.4 X10'3 (1.8-7.7); NEUTROPHILS % (AUTO) 73.2 % (42-75); PRE OP HEMATOCRIT 31.5 % (42.0-52.0); PRE OP PLATELET COUNT 186 X10'3 (140-440); RED BLOOD COUNT 3.22 X10'6 (4.70-6.10); RED CELL DISTRIBUTION WIDTH 15.1 % (11.5-14.5)
[2021-01-04 11:27] LABS: PRE OP HEMOGLOBIN 10.7 g/dL (14.0-17.9)
[2021-01-04 11:37] LABS: ALBUMIN 3.6 G/DL (3.4-5.0); ALBUMIN/GLOBULIN RATIO 1.1 (1.1-1.5); ALKALINE PHOSPHATASE 95 IU/L (46-116); BLOOD UREA NITROGEN 44 MG/DL (7-18); BUN/CREATININE RATIO 25.6 (5.4-32.0); CALCIUM 8.2 MG/DL (8.5-10.1); CHLORIDE 108 MMOL/L (99-107); CREATININE 1.72 MG/DL (0.60-1.10); PRE OP ALT 21 U/L (30-65); PRE OP ANION GAP 11 (8-16); PRE OP AST 21 U/L (10-37); PRE OP BILIRUB, TOTAL 0.3 MG/DL (0.0-1.0); PRE OP GLUCOSE 77 MG/DL (70-104); PRE OP SODIUM 141 MMOL/L (135-145); TOTAL CARBON DIOXIDE 22.2 MMOL/L (24-32); TOTAL PROTEIN 6.8 G/DL (6.4-8.2); eGFR 38 ML/MIN
[2021-01-04 11:43] LABS: C-REACTIVE PROTEIN < 0.05 MG/DL (0.0-0.5)
[2021-01-04 11:46] LABS: PRE OP INR 2.5 INR
[2021-01-12] VITALS (7 sets, daily range): BP systolic 147–167; BP diastolic 61–77
[~2021-01-12] VITALS: Ht 167.6 cm; Wt 77.0 kg
[~2021-01-12 08:38] MED LIST changes: -VITA-3 PO
[2021-01-12 09:46] LABS: PARTIAL THROMBOPLASTIN TIME 32 SECONDS (22-32)
[2021-01-12] MEDS ORDERED: fentaNYL/PF 50MCG/1 ML 2ML syringe IV PRN ×2 (10:40)
[2021-01-12] MEDS ORDERED: labetalol 20mg/4ml (5mg/ml) syringe IV PRN (10:40)
[2021-01-12] MEDS ORDERED: hydrALAZINE 20mg/ml inj. IV PRN (10:40)
[2021-01-12] MEDS ORDERED: ringers solution, lacted 1,000 ML IV SCH (10:40)
[2021-01-12] MEDS ORDERED: morphine 4 MG/ML inj SYRINge IV PRN (10:40)
[2021-01-12] MEDS ORDERED: ondansetron/PF 4mg/2ml inj IV PRN (10:40)
[2021-01-12] MEDS ORDERED: morphine 2 MG/ML inj. syringe IV PRN (10:40)
[2021-01-12] MEDS ORDERED: bacitracin 15gm ointment TP ONE (10:41)
[2021-01-12] MEDS ORDERED: BUPIVAcaine/PF 2.5mg/ml (0.25%) 10ml vial ONE ×2 (10:41→12:19)
[2021-01-12] MEDS ORDERED: desflurane 240ml liquid inh. IH ONE (11:53)
[2021-01-12] MEDS ORDERED: fentaNYL/PF 50MCG/1 ML 2ML syringe ONE ×2 (12:01)
[2021-01-12] MEDS ORDERED: midazolam 1 mg/ML 2ml injection ONE (12:01)
[2021-01-12] MEDS ORDERED: ondansetron/PF 4mg/2ml inj ONE (12:06)
[2021-01-12] MEDS ORDERED: propofol inj 20 ML IV ONE (12:06)
[2021-01-12] MEDS ORDERED: LIDOcaine 2% (20mg/ml) 5ml vial ONE (12:06)
[2021-01-12] MEDS ORDERED: dexamethasone sod phosphate 4mg/ml inj. ONE (12:07)
[2021-01-12] MEDS ORDERED: naloxone 0.4 mg/ml inj ONE (12:30)
--- NOTE | 2021-01-12 12:39 | NUR ---
ASSUME CARE PT AWAKE CONFUSED REORIENT VSS NO DISTRESS DENIES PAIN , +CMS TO LEFT FOOT, SOFT DRESSING TO LEFT FOOT CDI. IV TO RIGHT HAND 20G PATIENT WITH IV INFUSING WITHOUT DIFF CONT TO MONITOR. Addendum: 01/12/21 at 1305 by Kelly Liu RN Amended: Links added.
--- NOTE | 2021-01-12 13:32 | NUR ---
PT AWAKE TIMMY PO'S VSS NO DISTRESS DENIES PAIN MEETS CRITERIA TO DC HOME. Addendum: 01/12/21 at 1412 by Kelly Liu RN Amended: Links added.
== END 2021-01-12 13:39 | disposition home or self-care (01) ==
LOC: PAS 08:38
PROVIDERS: ATTEND Podiatrist Foot & Ankle Surgery
DX: M86.8X7 Other osteomyelitis, ankle and foot (principal); L97.529 Non-pressure chronic ulcer of other part of left foot with unspecified severity; I48.20 Chronic atrial fibrillation, unspecified; D64.9 Anemia, unspecified; I12.9 Hypertensive chronic kidney disease with stage 1 through stage 4 chronic kidney disease, or unspecified chronic kidney disease; N18.9 Chronic kidney disease, unspecified; F41.9 Anxiety disorder, unspecified; K21.9 Gastro-esophageal reflux disease without esophagitis; Z20.822 Contact with and (suspected) exposure to COVID-19; Z79.899 Other long term (current) drug therapy; Z79.01 Long term (current) use of anticoagulants; Z90.5 Acquired absence of kidney; Z90.79 Acquired absence of other genital organ(s); Z90.49 Acquired absence of other specified parts of digestive tract; Z85.528 Personal history of other malignant neoplasm of kidney; Z87.891 Personal history of nicotine dependence
CPT/HCPCS: 28820; 36415; 80053; 85025; 85610; 85651; 85730; 86140; A6222; J1100; J2001; J2250; J2310; J2405; J2704; J3010; J3490; U0003; U0005; Z7506; Z7512; 88305; 88311; A4215; A4618; A6253; A6449; A7000; J7120